=== PATIENT | female | born 1965 | race Caucasian/White ===

== ENCOUNTER 2017-07-29 19:07 | Emergency (ER) | payer OTHER ==
[2017-07-29 19:56] VITALS: BP 142/75
[2017-07-29] MEDS ORDERED: Amoxicillin/Clavulanate TAB* 875 MG PO ONE (20:16)
--- NOTE | 2017-07-29 20:41 | UC ---
Throat Pain/Nasal Trevin HPI - HPI Summary HPI Summary: SIX DAYS OF RIGHT SIDED FACIAL PAIN RADIATES TO RIGHT EAR AND TEETH. NO FEVER. DENTAL WORK DONE TO SAME SIDE TWO WEEKS AGO - History of Current Complaint Chief Complaint: UCEar Stated Complaint: EAR PAIN/SINUSES Time Seen by Provider: 07/29/17 20:09 Hx Obtained From: Patient Hx Last Menstrual Period: 07/23/15 Onset/Duration: Gradual Onset, Lasting Days, Still Present Severity: Moderate Pain Intensity: 9 Pain Scale Used: 0-10 Numeric Cough: None Associated Signs & Symptoms: Negative: Sinus Discomfort, Nasal Discharge, Fever - Epiglottits Risk Factors Epiglottis Risk Factors: Negative - Allergies/Home Medications Allergies/Adverse Reactions: Allergies Allergy/AdvReac Type Severity Reaction Status Date / Time Bee Venom Allergy Anaphylatic Verified 07/29/17 19:49 Shock Home Medications: Home Medications Acetaminophen [Acetaminophen Extra Stren] 1,000 mg PO Q6H PRN 07/29/17 [History Confirmed 07/29/17] Epinephrine [Epipen 2-Messi] 0.3 mg IM SEE INSTRUCTIONS PRN 07/29/17 [History Confirmed 07/29/17] Ibuprofen TAB* [Advil TAB*] 400 - 600 mg PO Q6H PRN 07/29/17 [History Confirmed 07/29/17] Levothyroxine TAB* [Synthroid TAB*] 25 mcg PO DAILY 07/29/17 [History Confirmed 07/29/17] glipiZIDE TAB* [Glucotrol TAB*] 5 mg PO DAILY 07/29/17 [History Confirmed ] metFORMIN* [Glucophage 500 MG TAB *] 500 mg PO BID 07/29/17 [History Confirmed 07/29/17] PMH/Surg Hx/FS Hx/Imm Hx Previously Healthy: Yes - Surgical History Surgical History: Yes Surgery Procedure, Year, and Place: Hysterectomy, 2016, [place]; 2 c- sections. D & C x1 - Family History Known Family History: Negative: Respiratory Disease - Social History Occupation: Employed Full-time Lives: With Family Alcohol Use: None Substance Use Type: None Smoking Status (MU): Never Smoked Tobacco - Immunization History Most Recent Influenza Vaccination: Not the 2017/2018 Season Review of Systems Constitutional: Negative Skin: Negative Eyes: Negative ENT: Dental Pain, Ear Ache, Sinus Congestion, Sinus Pain/Tenderness Respiratory: Negative Cardiovascular: Negative Gastrointestinal: Negative Genitourinary: Negative Motor: Negative Neurovascular: Negative Musculoskeletal: Negative Neurological: Negative Psychological: Negative Is Patient Immunocompromised?: No All Other Systems Reviewed And Are Negative: Yes Physical Exam Triage Information Reviewed: Yes Appearance: Well-Appearing, Well-Nourished, Pain Distress Vital Signs: Initial Vital Signs Temp 98.3 F 07/29/17 19:47 Pulse 96 07/29/17 19:47 Resp 16 07/29/17 19:47 BP 142/75 07/29/17 19:47 Pulse Ox 98 07/29/17 19:47 Vital Signs Reviewed: Yes Eye Exam: Normal ENT: Positive: Normal ENT inspection, Pharynx normal, TMs normal, Other: - RIGHT MAXILLARY TENDERNESS Dental Exam: Other - RIGHT UPPER JAW TENDERNESS Neck exam: Normal Neck: Positive: Supple, Nontender, No Lymphadenopathy Respiratory Exam: Normal Respiratory: Positive: Chest non-tender, Lungs clear, Normal breath sounds, No respiratory distress Cardiovascular Exam: Normal Cardiovascular: Positive: RRR, No Murmur, Pulses Normal, Brisk Capillary Refill Abdominal Exam: Normal Musculoskeletal Exam: Normal Neurological Exam: Normal Psychological Exam: Normal Skin Exam: Normal Throat Pain/Nasal Course/Dx - Differential Dx/Diagnosis Differential Diagnosis/HQI/PQRI: Pharyngitis, Sinusitis, Tonsillitis, URI Provider Diagnoses: RIGHT OTALIGIA; SINSUSITIS Discharge - Discharge Plan Condition: Stable Disposition: HOME Prescriptions: Amoxicillin/Clavulanate TAB* [Augmentin TAB 875*] 875 mg PO BID #20 tab Patient Education Materials: Sinusitis (ED), Toothache (ED) Referrals: Drew Dunlap DO [Primary Care Provider] -
== END 2017-07-29 20:23 | disposition home or self-care (01) ==
LOC: UCCORT 19:07
DX: H92.01 Otalgia, right ear (principal); J32.9 Chronic sinusitis, unspecified
CPT/HCPCS: 99212; A9270-GY; G0463

== ENCOUNTER 2018-04-05 20:11 | Emergency (ER) | payer OTHER ==
[2018-04-05] MEDS ORDERED: Albuterol 2.5 MG/3 ML NEB.SOL* (0.083%) INH ONE (20:27)
[2018-04-05] MEDS ORDERED: predniSONE TAB* 20 MG PO ONE (20:27)
[2018-04-05] MEDS ORDERED: Ipratropium 0.5MG/2.5ML NEB* 0.5 MG/2.5 ML NEB.SOLN INH ONE (20:27)
--- NOTE | 2018-04-05 20:28 | UC ---
Respiratory Complaint HPI - HPI Summary HPI Summary: 52 yo female with cough and wheeze worsening x 2 days no cp no f/c no n/v/d onset blamed on CORKY she has 2-4 episodes like this a year asthmatic - History of Current Complaint Chief Complaint: UCRespiratory Stated Complaint: COUGH, CHEST TIGHTNESS Time Seen by Provider: 04/05/18 20:23 Hx Obtained From: Patient Hx Last Menstrual Period: 07/23/15 Onset/Duration: Gradual Onset Timing: Constant Severity Initially: Mild Severity Currently: Moderate Pain Intensity: 0 Pain Scale Used: 0-10 Numeric Character: Cough: Nonproductive Associated Signs And Symptoms: Positive: Negative. Negative: Nasal Congestion, Hoarseness, Sinus Discomfort - Allergies/Home Medications Allergies/Adverse Reactions: Allergies Allergy/AdvReac Type Severity Reaction Status Date / Time bee venom protein (honey bee) Allergy Severe Anaphylatic Verified 04/05/18 20:20 Shock PMH/Surg Hx/FS Hx/Imm Hx Previously Healthy: Yes - Surgical History Surgical History: Yes Surgery Procedure, Year, and Place: Hysterectomy, 2016, [place]; 2 c- sections. D & C x1 - Family History Known Family History: Positive: Cardiac Disease, Hypertension, Diabetes Negative: Respiratory Disease - Social History Alcohol Use: None Substance Use Type: None Smoking Status (MU): Never Smoked Tobacco - Immunization History Most Recent Influenza Vaccination: Not the 2016/2017 Season Review of Systems Constitutional: Negative Skin: Negative Eyes: Negative ENT: Negative Respiratory: Shortness Of Breath, Cough Cardiovascular: Negative Gastrointestinal: Negative Genitourinary: Negative Motor: Negative Neurovascular: Negative Musculoskeletal: Negative Neurological: Negative Psychological: Negative Is Patient Immunocompromised?: No All Other Systems Reviewed And Are Negative: Yes Physical Exam Triage Information Reviewed: Yes Appearance: Well-Appearing, No Pain Distress, Other: - BMI >58 Vital Signs: Initial Vital Signs Temp 99.6 F 04/05/18 20:14 Pulse 105 04/05/18 20:14 Resp 20 04/05/18 20:14 BP 126/68 04/05/18 20:14 Pulse Ox 100 04/05/18 20:14 Eyes: Positive: Conjunctiva Clear ENT: Positive: Hearing grossly normal, Nasal congestion, Uvula midline. Negative: Nasal drainage, Tonsillar swelling, Tonsillar exudate, Trismus, Muffled voice, Hoarse voice, Sinus tenderness Neck: Positive: Supple, Nontender, No Lymphadenopathy Respiratory: Positive: No respiratory distress, No accessory muscle use, Wheezing Cardiovascular: Positive: RRR, No Murmur. Negative: Tachycardia Musculoskeletal: Positive: ROM Intact, Edema @ - pretibial Neurological: Positive: Alert Psychological Exam: Normal UC Diagnostic Evaluation - Laboratory O2 Sat by Pulse Oximetry: 100 - normal/not hypoxic Re-Evaluation - Re-Evaluation First Eval Re-Evaluation Time: 21:07 Change: Improved Comment: lungs clear Respiratory Course/Dx - Differential Dx/Diagnosis Provider Diagnoses: acute asthmatic attack Discharge - Sign-Out/Discharge Documenting (check all that apply): Discharge/Admit/Transfer - Discharge Plan Condition: Improved Disposition: HOME Patient Education Materials: Bronchospasm (ED) Forms: *Work Release Referrals: Drew Dunlap DO [Primary Care Provider] - 5 Days - Billing Disposition and Condition Condition: IMPROVED Disposition: Home
[2018-04-05 21:17] VITALS: BP 126/68
== END 2018-04-05 21:17 | disposition home or self-care (01) ==
LOC: UCCORT 20:11
DX: J45.909 Unspecified asthma, uncomplicated (principal)
CPT/HCPCS: 99212; G0463; J7512